=== PATIENT | male | born 1975 | race Two or more races ===

== ENCOUNTER 2024-06-22 13:02 | Outpatient (REF) | payer OTHER, SELFPAY ==
--- NOTE | ~2024-06-22 | MR_ITS ---
EXAMINATION: MR BRAIN WITHOUT AND WITH CONTRAST CLINICAL INFORMATION: Headache. COMPARISON: None available. TECHNIQUE: Multiplanar, multisequence MRI of the brain was obtained before and after the intravenous administration of 10.0 mL gadolinium based without reported immediate complications. FINDINGS: Submitted for interpretation on June 26, 2024. No restricted diffusion. No acute intracranial hemorrhage, mass effect, midline shift, hydrocephalus or herniation. Lo-white matter differentiation is normal. Posterior cranial fossa contents demonstrated no signal abnormality or fluid collections. Sellar/suprasellar region demonstrated no masses or signal abnormality. Craniocervical junction is intact and normal. The midline structures demonstrated normal signal. No abnormal enhancement within the intra-axial or the extra-axial compartment. Flow-void signal within the main cerebral vessels is normal. No signal abnormality or volume loss in the hippocampi. Nonspecific prominent lymph nodes in the suboccipital region. MR/MR head/brain wo/w con IMPRESSION: No acute or structural brain abnormality or enhancing lesion/mass. Negative exam. Electronically signed by: Yusuf Vaughan MD 06/26/2024 08:22 AM EST
[2024-06-22] MEDS: gadobutroL 10 ML VIAL IVPUSH (13:59)
== END 2024-06-22 13:03 | disposition home or self-care (01) ==
LOC: HO.MRI 13:02
PROVIDERS: PCP Internal Medicine; Visit Provider Internal Medicine
DX: R13.10 Dysphagia, unspecified (principal); R20.0 Anesthesia of skin
CPT/HCPCS: 70553; A9585

== ENCOUNTER → 2024-06-22 13:20 | Outpatient (BNV) | payer OTHER, SELFPAY | PROVIDERS: PCP Internal Medicine; Visit Provider Radiology Diagnostic Radiology | DX: R51.9 Headache, unspecified (principal) | CPT/HCPCS: 70553 ==